=== PATIENT | female | born 1975 | race Caucasian/White ===

== ENCOUNTER 2018-11-10 10:54 | Emergency (ER) | payer OTHER ==
[2018-11-10 11:10] VITALS: BP 129/79; PULSE 83; RESP 14; TEMP 98.9; O2SAT 100
--- NOTE | 2018-11-10 12:11 | ED PDOC ---
HPI: Dental Pain/Injury Time Seen by Provider: 11/10/18 11:15 Chief Complaint (Nursing): Dental Pain Chief Complaint (Provider): Dental Pain History Per: Patient History/Exam Limitations: no limitations Onset/Duration Of Symptoms: Days (x1 day) Additional Complaint(s): Salbador Enriquez is a 42 year old female with a no significant past medical history, presents to the emergency department complaining of having a blood drip out of her tooth since yesterday. She states she had an abutment done on her right upper tooth yesterday by Dr. Arnie Perkins. Patient states she had mild bleeding yesterday but noticed to have more bleeding today. The bleeding has now stopped but has formed a blood clot. Patient is concerned that she may need antibiotics. She states she has a schedule appointment with Dr. Perkins on Monday. Patient further denies any anticoagulant use, pain fever or chills. Patient has no history of anemia or previous blood transfusions. PMD: Santana Bonilla Past Medical History Reviewed: Historical Data, Nursing Documentation, Vital Signs Vital Signs: Last Vital Signs Temp 98.9 F 11/10/18 11:09 Pulse 83 11/10/18 11:09 Resp 14 11/10/18 11:09 BP 129/79 11/10/18 11:09 Pulse Ox 100 11/10/18 11:09 - Medical History PMH: No Chronic Diseases - Surgical History Surgical History: No Surg Hx - Family History Family History: States: Unknown Family Hx - Home Medications Home Medications: Ambulatory Orders Medication Instructions Recorded RX: Clindamycin [Cleocin] 300 mg PO TID #8 cap 11/10/18 - Allergies Allergies/Adverse Reactions: Allergies Allergy/AdvReac Type Severity Reaction Status Date / Time Penicillins Allergy RASH Verified 11/10/18 12:03 Sulfa (Sulfonamide Allergy RASH Verified 11/10/18 12:03 Antibiotics) Review of Systems ROS Statement: Except As Marked, All Systems Reviewed And Found Negative Constitutional: Negative for: Fever, Chills ENT: Positive for: Other (dry blood around tooth) Physical Exam - Reviewed Nursing Documentation Reviewed: Yes Vital Signs Reviewed: Yes - Physical Exam Appears: Positive for: Non-toxic, No Acute Distress ENT: Positive for: Other (dry blood noted in right upper maxillary area; no active bleeding or gingival swelling; positive blood clot noted) Respiratory: Negative for: Respiratory Distress - ECG O2 Sat by Pulse Oximetry: 100 (RA) Pulse Ox Interpretation: Normal Medical Decision Making Medical Decision Making: Time: 1140 Plan: --Call Dr. Perkisn at [phone] to discuss case. Time: 1221 --Have made two attempts to contact Dr. Perkins, but he has not answered or called back. --Patient does not want to wait in ED anymore and will follow up with Dr. Perkins on Monday. --Advised to apply pressure if bleeding starts again and to start a liquid diet. --Clindamycin 300mg PO ordered. --No bleeding while in ED. Scribe Attestation: Documented by Vivek Ryan, acting as a scribe for Christos Hinson Provider Scribe Attestation: All medical record entries made by the Scribe were at my direction and personally dictated by me. I have reviewed the chart and agree that the record accurately reflects my personal performance of the history, physical exam, medical decision making, and the department course for this patient. I have also personally directed, reviewed, and agree with the discharge instructions and disposition. Disposition - Clinical Impression Clinical Impression: History of surgical procedure on mouth - Patient ED Disposition Is Patient to be Admitted: No - Disposition Referrals: Denisha Leon Mulliken [Outside] Disposition: Routine/Home Disposition Time: 12:15 Condition: STABLE Additional Instructions: FOLLOW UP WITH YOUR DENTIST ON MONDAY WITHOUT FAIL RETURN TO ED IMMEDIATELY IF SYMPTOMS WORSEN SALBADOR ENRIQUEZ, thank you for letting us take care of you today. Your provider was Kelly Max MD and you were treated for RT SIDE MOUTH PAIN/BLEEDING. The emergency medical care you received today was directed at your acute symptoms. If you were prescribed any medication, please fill it and take as directed. It may take several days for your symptoms to resolve. Return to the Emergency Department if your symptoms worsen, do not improve, or if you have any other problems. Please contact your doctor or call one of the physicians/clinics you have been referred to that are listed on the Patient Visit Information form that is included in your discharge packet. [facility] with [facility] along with any medications you are taking to your follow up visit. Our treatment cannot replace ongoing medical care by a primary care provider outside of the emergency department. Thank you for allowing the [facility] team to be part of your care today. If you had an X-Ray or CT scan: A Radiologist will review the ED reading if any change in treatment is needed we will contact you. If you had a blood, urine, or wound culture: It will take several days for the results, if any change in treatment is needed we will contact you. If you had an STI test: It will take 48 hours for the results. Please call after 1 week if you have not heard back. Prescriptions: RX: Clindamycin [Cleocin] 300 mg PO TID #8 cap Instructions: Full Liquid Diet, How to Care for Your Mouth and Teeth, Diet After Mouth or Throat Surgery Forms: [employer] ([place])
== END 2018-11-10 12:31 | disposition home or self-care (01) ==
LOC: H.ER 10:54
DX: K13.79 Other lesions of oral mucosa (principal)